=== PATIENT | male | born 1980 | race Caucasian/White ===

== ENCOUNTER 2016-08-07 22:17 | Emergency (ER) | payer BC, MEDICAID, OTHER, SELFPAY ==
[~2016-08-07] VITALS: Ht 188 cm; Wt 85.0 kg
[2016-08-07 22:18] VITALS: BP 129/82
[2016-08-07] MEDS ORDERED: LIDOCAINE 1%, 20ML ONE (22:42)
[2016-08-07] MEDS ORDERED: HYDROcodone/APAP 5/325 TABLET ONE (22:51)
[2016-08-07] MEDS ORDERED: HYDROcodone/APAP 5/325 TABLET PO ONE (23:00)
[2016-08-07] MEDS ORDERED: LIDOCAINE 1%, 10ML INFIL ONE (23:00)
[2016-08-08] MEDS ORDERED: BACITRACIN ZINC OINT 500U/GM, 0.9 GM ONE (00:13)
== END 2016-08-08 00:56 | disposition home or self-care (01) ==
LOC: ED 08-08 00:37
DX: L02.412 Cutaneous abscess of left axilla (principal)
CPT/HCPCS: 10060; 76882; 99284; J3490

== ENCOUNTER 2019-07-30 02:38 | Inpatient (IN) | payer MEDICAID ==
[~2019-07-30] VITALS: Ht 185.4 cm; Wt 111.1 kg
--- NOTE | 2019-07-30 02:53 | NUR ---
Patient presents to ER c/o SOB, CP, cough, body aches, and sweatiness x2 days. Patient states he has been taking Mucinex and ibuprofen for the symptoms which has not helped. Patient has been staying with his mother in law who was recently sick with pneumonia. 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 Patient is in NAD. Respirations even and unlabored.
[2019-07-30] MEDS ORDERED: SODIUM CHLORIDE 0.9% 1,000ML IVBOLUS ONE ×3 (03:30→06:00)
[2019-07-30] MEDS ORDERED: CEFTRIAXONE PMX 1GM/50ML 50 ML IV ONE ×2 (03:30→09:00)
[2019-07-30] MEDS ORDERED: SODIUM CHLORIDE FLUSH 10ML SYR IVF ONE (03:30)
[2019-07-30] MEDS ORDERED: AZITHROMYCIN 500 MG in SODIUM CHLORIDE 0.9% 250 ML IV ONE (03:30)
[2019-07-30] MEDS ORDERED: CEFTRIAXONE PMX 1GM/50ML 50 ML ONE (03:33)
--- NOTE | 2019-07-30 03:47 | NUR ---
SECOND IV STARTED, PT TOLERATE WELL, REMAINS TACHYPNIC AND TACHYCARDIC, HR DOWN FROM 130 TO 113. PT CONTIUES WITH COUGH AND COMPLAINTS SOB. LAB TO ROOM FOR ABG AT THIS TIME. BOLUS INFUSING, ANTIBIOTICS STARTED AND BLOOD CULTURES HAVE BEEN DRAWN PRIOR.
[2019-07-30 03:49] LABS: MEAN CORPUSCULAR HEMOGLOBIN 30.9 pg (27.5-34.5); MEAN CORPUSCULAR HGB CONC 33.5 g/dL (33.2-36.2); MEAN CORPUSCULAR VOLUME 92.5 fL (81-97); MEAN PLATELET VOLUME 9.5 fL (7.4-10.4); PLATELET COUNT 320 x10^3/uL (130-400); RED BLOOD COUNT 4.19 x10^6/uL (4.38-5.82); RED CELL DISTRIBUTION WIDTH 14.1 % (9.4-14.8)
[2019-07-30 03:57] LABS: ALANINE AMINOTRANSFERASE 34 U/L (12-78); ANION GAP 9 mmol/L (5-15); CALCIUM 8.5 mg/dL (8.5-10.1); CHLORIDE 104 mmol/L (98-107); CREATININE 1.35 mg/dL (0.7-1.3)
[2019-07-30 03:59] LABS: ALKALINE PHOSPHATASE 170 U/L (45-117); BILIRUBIN,TOTAL 0.7 mg/dL (0.2-1.0); TOTAL PROTEIN 7.9 g/dL (6.4-8.2)
[2019-07-30 04:07] LABS: TROPONIN I < 0.015 ng/mL (0.000-0.045)
--- NOTE | 2019-07-30 04:17 | NUR ---
Critical lab of procalcitonin 14.5 received. ERP and primary RN notified. Lab also requesting to redraw ABG s/t likely a venous draw. ERP aware.
[2019-07-30 04:41] LABS: MD YES
[2019-07-30 04:44] LABS: BAND#(MANUAL) 7.23 x10^3/uL; BANDS%(MANUAL) 16 % (0-7); LYMPH#(MANUAL) 1.36 x10^3/uL (1-3.4); LYMPHS% (MANUAL) 3 % (22-44); MONOS#(MANUAL) 1.36 x10^3/uL (0.3-2.7); MONOS% (MANUAL) 3 % (2-9); SEG#(MANUAL) 35.26 x10^3/uL (1.8-6.8); SEGS% (MANUAL) 78 % (42-75)
[2019-07-30 04:45] LABS: <PLATELET ESTIMATE> ADEQUATE; <RBC MORPHOLOGY> NORMAL; PMNS WITH VACUOLES 1+; TOXIC GRAN 1+
[2019-07-30 04:46] LABS: LARGE PLATELETS 1+
--- NOTE | 2019-07-30 05:07 | NUR ---
Report given to VINICIO Collado. Patient to be transferred to room 304.
--- NOTE | 2019-07-30 05:30 | NUR ---
THIS TECH ROOMED PT & ASSISTED WITH BATHROOM
--- NOTE | 2019-07-30 05:54 | NUR ---
LATE NOTE: THIS TECH DID EKG
--- NOTE | 2019-07-30 06:59 | NUR ---
Report to VINICIO Quinn.
--- NOTE | 2019-07-30 07:05 | NUR ---
Bedside report received from Evelina MOONEY, pt care transferred at this time. Pt resting in gurney, denies additional needs, skin is moist due to diaphoresis. NAD, WCTM. waiting on admit bed.
[2019-07-30] MEDS ORDERED: ONDANSETRON 2MG/ML, 2ML IVPush PRN (07:30)
[2019-07-30] MEDS ORDERED: ACETAMINOPHEN 325 MG TABLET PO PRN (07:30)
[2019-07-30] MEDS ORDERED: ONDANSETRON ODT 4 MG PO PRN (07:30)
[2019-07-30] MEDS: SODIUM CHLORIDE 0.9% 1,000 ML IV SCH ×2 (08:00→15:30)
--- NOTE | 2019-07-30 08:12 | NUR ---
Pt resting in gurney, denies additional needs at this time, skin is moist due to diaphoresis. NAD, WCTM. waiting on admit bed.
--- NOTE | 2019-07-30 08:27 | NUR ---
pt resting in gurney, given urinal, sweat noted on skin, pt reports feel slightly anxious. WCTM. waiting on admit bed.
[2019-07-30] MEDS ORDERED: NICOTINE 14MG/24 HR PATCH.TD24 TD SCH (08:30)
--- NOTE | 2019-07-30 08:35 | NUR ---
Report called to Tammy MOONEY. Pt rtg up. Resting in [facility], denies additional needs at this time. WCTM until transfer
[2019-07-30 10:05] VITALS: BP 101/78
[2019-07-30] MEDS: HEPARIN 5,000 UNITS/ML, 1ML SQ SCH ×2 (12:05→19:42)
[2019-07-30 12:30] VITALS: BP 109/75
[2019-07-30 20:09] VITALS: BP 127/76
[2019-07-31] MEDS ORDERED: NICOTINE 21 MG/24 HR PATCH.TD24 TD ONE
[2019-07-31 01:39] VITALS: BP 111/74
[2019-07-31] MEDS: CEFTRIAXONE PMX 2GM/50ML 50 ML IV SCH (02:27)
[2019-07-31] MEDS: SODIUM CHLORIDE 0.9% 1,000 ML IV SCH (02:28)
[2019-07-31] MEDS: HEPARIN 5,000 UNITS/ML, 1ML SQ SCH ×3 (04:12→20:40)
[2019-07-31 05:59] LABS: MEAN CORPUSCULAR HEMOGLOBIN 30.9 pg (27.5-34.5); MEAN CORPUSCULAR HGB CONC 33.2 g/dL (33.2-36.2); MEAN CORPUSCULAR VOLUME 93.1 fL (81-97); MEAN PLATELET VOLUME 9.2 fL (7.4-10.4); PLATELET COUNT 333 x10^3/uL (130-400); RED BLOOD COUNT 3.94 x10^6/uL (4.38-5.82); RED CELL DISTRIBUTION WIDTH 14.4 % (9.4-14.8)
[2019-07-31 06:11] LABS: ANION GAP 5 mmol/L (5-15); CALCIUM 8.2 mg/dL (8.5-10.1); CHLORIDE 110 mmol/L (98-107)
[2019-07-31 06:12] LABS: MD YES
[2019-07-31 06:21] LABS: CREATININE 0.62 mg/dL (0.7-1.3)
[2019-07-31 06:24] LABS: <PLATELET ESTIMATE> ADEQUATE; <RBC MORPHOLOGY> NORMAL; BAND#(MANUAL) 0.94 x10^3/uL; BANDS%(MANUAL) 4 % (0-7); C-REACTIVE PROTEIN, QUANT > 19.00 mg/dL (0.02-0.49); LARGE PLATELETS 1+; LYMPHS% (MANUAL) 6 % (22-44); SEG#(MANUAL) 21.06 x10^3/uL (1.8-6.8); SEGS% (MANUAL) 90 % (42-75)
[2019-07-31 06:27] LABS: TOXIC GRAN 1+
[2019-07-31] MEDS: POTASSIUM CHLORIDE 20 MEQ TAB.ER.PRT PO SCH ×2 (07:44→17:00)
[2019-07-31] MEDS: AZITHROMYCIN 500 MG TABLET PO SCH (07:44)
[2019-07-31 08:07] VITALS: BP 119/81
[2019-07-31 13:17] VITALS: BP 159/84
[2019-07-31 17:00] VITALS: BP 154/64
[2019-07-31 19:17] VITALS: BP 129/88
[2019-07-31] MEDS ORDERED: NICOTINE 14MG/24 HR PATCH.TD24 TD SCH (21:30)
[2019-08-01 04:10] VITALS: BP 118/67
[2019-08-01] MEDS: CEFTRIAXONE PMX 2GM/50ML 50 ML IV SCH (04:31)
[2019-08-01] MEDS: HEPARIN 5,000 UNITS/ML, 1ML SQ SCH ×2 (04:32→12:54)
[2019-08-01 06:19] LABS: CALCIUM 8.4 mg/dL (8.5-10.1); CHLORIDE 109 mmol/L (98-107)
[2019-08-01 06:29] LABS: ALANINE AMINOTRANSFERASE 52 U/L (12-78); ALBUMIN 1.6 g/dL (3.4-5.0); ALKALINE PHOSPHATASE 136 U/L (45-117); ANION GAP 7 mmol/L (5-15); BILIRUBIN,TOTAL 0.2 mg/dL (0.2-1.0); CREATININE 0.72 mg/dL (0.7-1.3)
[2019-08-01 07:12] LABS: BASOPHILS # (AUTO) 0.04 x10^3/uL (0-0.1); BASOPHILS % (AUTO) 0 % (0-1); EOSINOPHILS # (AUTO) 0.04 x10^3/uL (0-0.4); EOSINOPHILS % (AUTO) 0 % (1-7); LYMPHOCYTES # (AUTO) 2.99 x10^3/uL (1-3.4); LYMPHOCYTES % (AUTO) 21 % (22-44); MD SCAN; MEAN CORPUSCULAR HEMOGLOBIN 30.8 pg (27.5-34.5); MEAN CORPUSCULAR HGB CONC 33.1 g/dL (33.2-36.2); MEAN PLATELET VOLUME 9.9 fL (7.4-10.4); MONOCYTES # (AUTO) 0.63 x10^3/uL (0.2-0.8); MONOCYTES % (AUTO) 4 % (2-9); NEUTROPHILS # (AUTO) 10.78 x10^3/uL (1.8-6.8); NEUTROPHILS % (AUTO) 75 % (42-75); PLATELET COUNT 302 x10^3/uL (130-400); RED BLOOD COUNT 4.16 x10^6/uL (4.38-5.82); RED CELL DISTRIBUTION WIDTH 14.4 % (9.4-14.8)
[2019-08-01 07:15] VITALS: BP 134/87
[2019-08-01] MEDS: POTASSIUM CHLORIDE 20 MEQ TAB.ER.PRT PO SCH (07:50)
[2019-08-01] MEDS: AZITHROMYCIN 500 MG TABLET PO SCH (07:50)
[2019-08-01] MEDS ORDERED: CEFD300C37 PO (12:46)
[2019-08-01] MEDS ORDERED: AZIT500T10 PO (12:46)
[2019-08-01 13:55] VITALS: BP 135/88
== END 2019-08-01 14:35 | disposition home or self-care (01) | DRG 871 ==
LOC: ED 03:29 → EDIP 04:36 → 3WST 08:46 → 3E 07-31 16:37
PROVIDERS: ADMIT Internal Medicine; ATTEND Hospitalist
DX: A41.9 Sepsis, unspecified organism (principal); J15.9 Unspecified bacterial pneumonia; J96.01 Acute respiratory failure with hypoxia; R65.21 Severe sepsis with septic shock; N17.9 Acute kidney failure, unspecified; F17.210 Nicotine dependence, cigarettes, uncomplicated; Z20.818 Contact with and (suspected) exposure to other bacterial communicable diseases
CPT/HCPCS: 36415; 36600; 71045; 80048; 80053; 82728; 82803; 83605; 83615; 83735; 83880; 84145; 84484; 85025; 85379; 86140; 87040; 93005; 96365; 96368; G0378; J0456; J0696; J1644; Q0162; J7030; J7050; U0001